=== PATIENT | female | born 1935 | race Hispanic/Latino ===

== ENCOUNTER 2017-04-21 10:55 | Outpatient (CLI) | payer MEDICARE, MEDICAID ==
--- NOTE | 2017-04-21 13:26 | MMO ---
SCREENING MAMMOGRAM: Date: 04/21/17 COMPARISON: 04/19/16 and 04/15/15. HISTORY: Screening mammography, history of left breast cancer treated in 2008 with mastectomy. FINDINGS: This patient's mammogram was interpreted with the assistance of computer-aided detection. Scattered fibroglandular densities are present on the right. Benign microcalcifications are again see n. No dominant mass or architectural distortion. No concerning microcalcifications are noted. IMPRESSION: BIRADS 2: Benign Finding(s) Annual screening mammography recommended. POS: MICHELLE
== END 2017-04-21 10:56 | disposition home or self-care (01) ==
LOC: MAMMO 10:55
PROVIDERS: ATTEND Internal Medicine Hematology & Oncology
DX: Z12.31 Encounter for screening mammogram for malignant neoplasm of breast (principal); C50.912 Malignant neoplasm of unspecified site of left female breast
CPT/HCPCS: 77067; G0202

== ENCOUNTER 2018-05-10 10:57 | Outpatient (CLI) | payer MEDICARE, MEDICAID | END 2018-05-10 10:58 | disposition home or self-care (01) | LOC: BICMAMMO 10:57 | PROVIDERS: ATTEND Internal Medicine Hematology & Oncology | DX: Z12.31 Encounter for screening mammogram for malignant neoplasm of breast (principal); Z85.3 Personal history of malignant neoplasm of breast | CPT/HCPCS: 77063; 77067 ==

== ENCOUNTER 2018-08-20 01:41 | Inpatient (IN) | payer MEDICARE, MEDICAID ==
[2018-08-20 05:40] VITALS: BMI 29.0
[2018-08-20] MEDS ORDERED: Ondansetron ODT 4 MG TAB SL PRN (06:55)
[2018-08-20] MEDS ORDERED: Ondansetron PF 4 MG/2 ML Vial IVP PRN (06:55)
[2018-08-20] MEDS ORDERED: Morphine 4 MG/ML VIAL SLOW IVP PRN (06:55)
[2018-08-20] MEDS: Sodium Chloride 0.9% 1,000 ML IV SCH ×2 (08:58→18:00)
--- NOTE | 2018-08-20 14:07 | HP ---
PRIMARY CARE PHYSICIAN: Dr. Mi. CHIEF COMPLAINT: Abdominal pain. HISTORY OF PRESENT ILLNESS: The patient is an obese 82-year-old female. She is known about a ventral abdominal hernia that she has had for at least 8 or 9 years. She tells me that she has been advised by her physicians not to have this repaired because she is "too old." Yesterday, she developed abdominal pain in the lower abdomen and had vomiting associated with this. She was seen at the [facility] in [place], where laboratory and radiologic evaluation was performed. CT scan of the abdomen revealed the ventral hernia, primarily to the right side of the abdomen with significant loops of bowel herniated into the defect. There was a question about some dilated segments of bowel. It was; however, noted that the bowel that was herniated through this did not appear to be obstructed. The contrast passed through the entire small bowel into the colon. Due to her discomfort and the persistence of this hernia, she was transferred to [facility], where I was consulted in the middle of the night and requested to admit her. The ER physician felt that he could not reduce the hernia. PAST MEDICAL HISTORY: 1. Hypertension. 2. Hyperlipidemia. 3. Gastroesophageal reflux disease. 4. Depression. PAST SURGICAL HISTORY: 1. Left mastectomy. 2. Hysterectomy (vaginal hysterectomy). 3. Cholecystectomy. 4. Cataract surgery. MEDICATIONS: Include; 1. Lisinopril. 2. Amlodipine. 3. Atorvastatin. 4. Omeprazole. 5. Celebrex. 6. Duloxetine. ALLERGIES: SHE IS ALLERGIC TO CIPRO AND CODEINE. PERSONAL AND SOCIAL HISTORY: She is and has 2 children. One of her daughters is present at bedside. She does not smoke. Does not drink alcohol. She lives by herself in [place]. She is ambulatory with a walker. Her primary care physician is Dr. Mi. REVIEW OF SYSTEMS: Otherwise unremarkable. FAMILY HISTORY: Noncontributory. PHYSICAL EXAMINATION: VITAL SIGNS: Temperature 98.1, pulse 71, and blood pressure 163/90. GENERAL: She is a well-developed, well-nourished, moderately obese female, resting in bed, in no acute distress. She is alert and oriented x3. HEAD, EYES, EARS, NOSE, AND THROAT: Unremarkable. NECK: Supple without mass or tenderness. LUNGS: Clear to auscultation throughout. CARDIAC: Regular rate and rhythm without murmur. ABDOMEN: Obese, but soft. Bowel sounds are present and normoactive. There is a palpable mass to the right of midline just inferior to her umbilicus. Attempts to reduce this mass are not completely successful. EXTREMITIES: Unremarkable. LABORATORY DATA: Her CBC when she presented yesterday revealed a white blood cell count of 14.0 with a hemoglobin of 15.5 and platelet count was 221. Chemistry revealed normal electrolytes and normal liver function tests. ASSESSMENT AND PLAN: The patient with a substantial right-sided abdominal hernia. It is difficult to discern, where this came from because I cannot see that she had any real abdominal surgery at this location. She had a vaginal hysterectomy and a cholecystectomy, I guess it is possible this could be from an umbilical incision, but it would be atypical. Nonetheless, I recommend repair with mesh. This would probably be the best approach with the robotic surgery that would allow primary closure of the fascial defect and an onlay mesh on top of that. I discussed all this in detail with the patient as well as potential risks. She understands and agrees to proceed with surgery at this time. Job ID: [id number]
[2018-08-21] MEDS: Sodium Chloride 0.9% 1,000 ML IV SCH ×2 (02:30→11:21)
[2018-08-21 05:47] LABS: #Basophils 0.1 thou/uL (0.0-0.2); #Eosinphils 0.2 thou/uL (0.0-0.7); #Lymphocytes 1.9 thou/uL (1.20-3.40); #Monocytes 0.6 thou/uL (0.11-0.59); #Neutrophils 5.3 thou/uL (1.40-6.50); %Basophils 1.2 % (0.0-1.0); %Eosinophils 2.9 % (0.0-10.0); %Lymphocytes 23.6 % (21.0-51.0); %Monocytes 7.5 % (0.0-10.0); %Neutrophils 64.7 % (42.0-75.0); Hemoglobin 13.1 g/dL (12.0-16.0); Mean Corpuscular HGB CONC 31.6 g/dL (32.0-36.0); Mean Platelet Volume 9.5 fL (7.4-10.4); Platelet Count 171 thou/uL (130-400); RBC Distribution Width 12.8 % (11.5-14.5); Red Blood Cell (RBC) Count 4.35 mill/uL (4.20-5.40); White Blood Cell (WBC) Count 8.2 thou/uL (4.8-10.8)
[2018-08-21 06:02] LABS: Anion Gap 11 mmol/L (10-20); BUN (Urea Nitrogen) 7 mg/dL (9.8-20.1); Calc. Creatinine Clearance 89 mL/min (70-130); Calcium 8.3 mg/dL (7.8-10.44); Carbon Dioxide 24 mmol/L (23-31); Chloride 110 mmol/L (98-107); Estimated GFR-MDRD Greater than 90; Glucose 73 mg/dL (83-110); Potassium 3.6 mmol/L (3.5-5.1); Sodium 141 mmol/L (136-145)
[2018-08-21] MEDS ORDERED: Fentanyl 100 MCG/2 ML VIAL ONE ×3 (08:50→13:56)
[2018-08-21] MEDS ORDERED: PROPOFOL 200 MG/20 ML VIAL ONE (09:07)
[2018-08-21] MEDS ORDERED: Glycopyrrolate 0.2 MG/ML 5 ML SYRINGE ONE (09:07)
[2018-08-21] MEDS ORDERED: PHENYLEPHRINE-NS 100 MCG/ML 10 ML SYRINGE ONE (09:07)
[2018-08-21] MEDS ORDERED: Ketorolac Tromethamine 30 MG/ML VIAL ONE ×2 (09:07→09:41)
[2018-08-21] MEDS ORDERED: Rocuronium Bromide 10 MG/ML (10ML VIAL) ONE (09:07)
[2018-08-21] MEDS ORDERED: ePHEDrine 50 MG/ML VIAL ONE (09:07)
[2018-08-21] MEDS ORDERED: Dexamethasone 20 MG/5 ML VIAL ONE (09:07)
[2018-08-21] MEDS ORDERED: Lidocaine 2% PF 100 mg/5 ml Syringe ONE (09:07)
[2018-08-21] MEDS ORDERED: Ondansetron PF 4 MG/2 ML Vial ONE (09:07)
[2018-08-21] MEDS ORDERED: Bupivacaine/Epinephrine 0.25% 30 ML VIAL ONE (09:07)
[2018-08-21] MEDS ORDERED: Lidocaine 1% PF 5 ML VIAL ONE (09:07)
[2018-08-21] MEDS ORDERED: Dextrose 5% in Water 1,000 ML IV PRN (14:03)
[2018-08-21] MEDS ORDERED: Ondansetron PF 4 MG/2 ML Vial IVP PRN (14:03)
[2018-08-21] MEDS ORDERED: HYDROcodone/Acetaminophen 7.5/325 mg Tablet PO PRN ×2 (14:03)
[2018-08-21] MEDS ORDERED: Morphine 4 MG/ML VIAL SLOW IVP PRN (14:03)
[2018-08-21] MEDS ORDERED: hydrALAZINE 20 MG/ML VIAL SLOW IVP PRN (14:03)
[2018-08-21] MEDS ORDERED: Promethazine HCl 25 MG/ML VIAL IM PRN (14:03)
[2018-08-21] MEDS ORDERED: Dextrose 50% Abboject 50 ML SYRINGE SLOW IVP PRN (14:03)
[2018-08-21] MEDS ORDERED: Promethazine HCl 25 MG/ML VIAL ONE (14:07)
[2018-08-21] MEDS: D5 1/2 NS w/20 mEq KCL 1,000 ML IV SCH (16:33)
[2018-08-21] MEDS: Famotidine 20 MG TAB PO SCH (19:22)
[2018-08-22] MEDS: D5 1/2 NS w/20 mEq KCL 1,000 ML IV SCH ×2 (05:32→20:02)
[2018-08-22 08:34] LABS: #Basophils 0.1 thou/uL (0.0-0.2); #Lymphocytes 1.1 thou/uL (1.20-3.40); #Monocytes 0.9 thou/uL (0.11-0.59); #Neutrophils 14.7 thou/uL (1.40-6.50); %Basophils 0.3 % (0.0-1.0); %Eosinophils 0.1 % (0.0-10.0); %Lymphocytes 6.5 % (21.0-51.0); %Monocytes 5.5 % (0.0-10.0); %Neutrophils 87.6 % (42.0-75.0); Hemoglobin 11.8 g/dL (12.0-16.0); Mean Corpuscular HGB CONC 31.1 g/dL (32.0-36.0); Mean Corpuscular Hemoglobin 30.3 pg (27.0-31.0); Mean Corpuscular Volume 97.2 fL (78.0-98.0); Mean Platelet Volume 9.3 fL (7.4-10.4); Platelet Count 187 thou/uL (130-400); RBC Distribution Width 12.9 % (11.5-14.5); White Blood Cell (WBC) Count 16.8 thou/uL (4.8-10.8)
[2018-08-22 10:20] LABS: Chloride 103 mmol/L (98-107); Potassium 4.1 mmol/L (3.5-5.1); Sodium 137 mmol/L (136-145)
[2018-08-22 10:21] LABS: Glucose 140 mg/dL (83-110)
[2018-08-22 10:23] LABS: Anion Gap 15 mmol/L (10-20); Carbon Dioxide 23 mmol/L (23-31)
[2018-08-22] MEDS: Famotidine 20 MG TAB PO SCH ×3 (10:24→20:02)
[2018-08-22 10:25] LABS: BUN (Urea Nitrogen) 12 mg/dL (9.8-20.1); Calc. Creatinine Clearance 71 mL/min (70-130); Estimated GFR-MDRD 75
[2018-08-22 10:39] LABS: Calcium 9.8 mg/dL (7.8-10.44)
[2018-08-22] MEDS: Enoxaparin Sodium 40 MG/0.4 ML SYRINGE SC SCH (11:44)
--- NOTE | 2018-08-22 15:17 | PRG ---
DATE OF SERVICE: 08/22/2018 SUBJECTIVE: Ms. Alvarez is postoperative day #1 from robotic repair of multiple ventral abdominal hernias and robotic repair of an umbilical hernia. She had some episodes of emesis immediately after the surgery, for which a nasogastric tube was placed. This is still present this morning. OBJECTIVE: VITAL SIGNS: She is afebrile, pulse is 73, blood pressure 137/67. GENERAL: She is alert and oriented, in minimal discomfort. She has ambulated. HEAD, EYES, EARS, NOSE, AND THROAT: Unremarkable. NECK: Supple. LUNGS: Clear to auscultation. ABDOMEN: Has intact bowel sounds. Her umbilicus is nicely inverted and her robotic incision sites are healing nicely. LABORATORY DATA: Her white blood cell count is elevated at 16.8, hemoglobin is 11.8. Basic metabolic panel is entirely normal. ASSESSMENT: The patient seems to be doing well. Nasogastric tube will be removed. She will be started on clear liquid diet today. I have encouraged her to get out of bed frequently and sit up in the chair and ambulate. Hopefully, she will have substantial ileus after resolution of her incarcerated hernia. Job ID: [id number]
[2018-08-22] MEDS: Acetaminophen 325 MG TAB PO PRN (21:15)
[2018-08-23] MEDS: Acetaminophen 325 MG TAB PO PRN ×2 (08:16→19:34)
[2018-08-23] MEDS: CeleCOXIB 100 MG CAP PO SCH (08:17)
[2018-08-23] MEDS: Atorvastatin Calcium 20 MG TAB PO SCH (08:17)
[2018-08-23] MEDS: DULoxetine 30 MG CAP PO SCH (08:17)
[2018-08-23] MEDS: Amlodipine 5 MG TAB PO SCH (08:17)
[2018-08-23] MEDS: Lisinopril 10 MG TAB PO SCH (08:18)
[2018-08-23] MEDS: Famotidine 20 MG TAB PO SCH ×2 (08:18→19:34)
[2018-08-23] MEDS: Enoxaparin Sodium 40 MG/0.4 ML SYRINGE SC SCH (08:27)
[2018-08-23] MEDS ORDERED: Magnesium Citrate 300 ML BOT PO SCH (09:00)
[2018-08-23] MEDS ORDERED: Amlodipine 5 MG TAB PO SCH (09:00)
[2018-08-23] MEDS ORDERED: DULoxetine 30 MG CAP PO SCH (09:00)
[2018-08-23] MEDS ORDERED: Non-Formulary Item 1 EACH (Celecoxib [Celebrex] 200 MG) PO SCH (09:00)
[2018-08-24 05:49] LABS: #Basophils 0.1 thou/uL (0.0-0.2); #Eosinphils 0.3 thou/uL (0.0-0.7); #Lymphocytes 1.5 thou/uL (1.20-3.40); #Monocytes 0.7 thou/uL (0.11-0.59); #Neutrophils 6.6 thou/uL (1.40-6.50); %Eosinophils 3.3 % (0.0-10.0); %Lymphocytes 16.1 % (21.0-51.0); %Monocytes 7.4 % (0.0-10.0); %Neutrophils 72.2 % (42.0-75.0); Hemoglobin 12.2 g/dL (12.0-16.0); Mean Corpuscular HGB CONC 31.6 g/dL (32.0-36.0); Mean Corpuscular Hemoglobin 30.2 pg (27.0-31.0); Mean Corpuscular Volume 95.8 fL (78.0-98.0); Mean Platelet Volume 9.3 fL (7.4-10.4); Platelet Count 166 thou/uL (130-400); RBC Distribution Width 12.9 % (11.5-14.5); Red Blood Cell (RBC) Count 4.02 mill/uL (4.20-5.40); White Blood Cell (WBC) Count 9.2 thou/uL (4.8-10.8)
[2018-08-24 07:39] VITALS: TEMP 98.3
[2018-08-24] MEDS: CeleCOXIB 100 MG CAP PO SCH (08:03)
[2018-08-24] MEDS: Atorvastatin Calcium 20 MG TAB PO SCH (08:03)
[2018-08-24] MEDS: Famotidine 20 MG TAB PO SCH (08:03)
[2018-08-24] MEDS: DULoxetine 30 MG CAP PO SCH (08:03)
[2018-08-24] MEDS: Acetaminophen 325 MG TAB PO PRN (08:03)
[2018-08-24] MEDS: Lisinopril 10 MG TAB PO SCH (08:04)
[2018-08-24] MEDS: Amlodipine 5 MG TAB PO SCH (08:04)
[2018-08-24] MEDS: Enoxaparin Sodium 40 MG/0.4 ML SYRINGE SC SCH (09:11)
[2018-08-24 11:11] VITALS: BP 124/76
--- NOTE | 2018-08-25 14:41 | OP ---
DATE OF PROCEDURE: 08/21/2018 PREOPERATIVE DIAGNOSES: Incarcerated ventral abdominal hernia with partial small bowel obstruction, umbilical hernia. POSTOPERATIVE DIAGNOSES: Incarcerated ventral abdominal hernia with partial small bowel obstruction, umbilical hernia. Finding of 5 separate ventral hernias inferior to her umbilicus as well as the umbilical hernia. OPERATIONS PERFORMED: Robotic repair of multiple ventral abdominal hernias with mesh, repair of umbilical hernia with mesh. ANESTHESIA: General endotracheal. INDICATIONS: The patient is an 82-year-old moderately obese female. She was recognized to have a ventral abdominal hernia inferior and a little bit to the right of her umbilicus that she tells me has been present for several years. For reasons that are not clear, she was recommended against repair of this. She presented to the emergency room at this time complaining of abdominal pain and CT scan shows a significant volume of small bowel present up within her hernia. She did not appear to have definitely obstructive findings at this time. Nonetheless, I recommend repair of the hernias as I am unable to reduce the bowel contents. I recommend doing this robotically. DESCRIPTION OF OPERATION: Informed consent was obtained. The patient was taken to the operating room, where general endotracheal anesthesia was obtained with the patient in supine position. Abdomen was prepped with ChloraPrep and draped in sterile fashion. Local anesthetic was infiltrated and an 11 mm epigastric incision was created through which a Veress needle was passed in the peritoneal cavity and pneumoperitoneum established using carbon dioxide up to a pressure of 15 mmHg. An 11 mm trocar port sites at the same incision, laparoscopic camera was passed this port. Under direct vision, 2 additional 8 mm robotic ports were placed laterally at the same level on either side of midline. The robot was docked to the ports and to the camera and the operation was continued from the robotic console. Attention was turned to the hernias. The umbilical hernia was the more cephalad and there was no incarcerated material within this, but there was a broad-based defect. When measured, this was about 2.5 x 3 cm. Inferior to this, there was a significant volume of tissue adherent to the abdominal wall. As I began to mobilize omental tissue, it became apparent that there were multiple hernias at this level. Each of which was entirely and had a separate hernia sacs emanated from these. I removed a large volume of omentum from within these. No adhesions were taken down using combination of sharp dissection and electrocautery. With compression externally, I was able to reduce all of the bowel contents out of the dominant hernia and lysed the adhesions between the loops of small bowel and the hernia sac. Again, great care was taken in doing this to maintain meticulous hemostasis as well as to avoid any bowel injuries. All reduced contents were inspected, there was no evidence of any injury or bleeding. Attention was then turned back to the hernias. I measured the complex of ventral hernias other than the umbilicus and these measured about 7 cm in width by about 4 to 5 cm longitudinally. Because of the way that these were ranged, these appeared to be amenable to closure with a single running suture in a transverse fashion. I used the #1 nonabsorbable STRATAFIX suture and closed these multiple hernias in a transverse fashion with robotic intracorporeal suturing. The pressure within the abdomen was dropped to 9 mmHg during the closure. There was excellent approximation of tissue. The length of the incision was still about 7.5 cm in length, but the wound itself was not less than 1 cm. Attention was then turned to the umbilical hernia, which was closed with a similar suture in a similar fashion. When I then measured the 2 areas of the hernia closures, the dimensions then measured 7.5 cm in maximum width x about 3 to 4 cm in total longitudinal length. I felt that coverage of both defects with a single 10 x 15 cm Ventralex mesh patch was appropriate. The patch was obtained and placed within the abdominal cavity. I used a stay suture to center this to obtain maximum coverage over both defects. The outer circumference of the suture was then closed using a running suture of 2-0 V-Loc using absorbable material. Two of the sutures were required to complete the circumference. When this was completed, I also placed 2 interrupted sutures of 3-0 Vicryl within the center of the patch to get better approximation of the mesh material against the fascia. Not mentioned earlier was that in preparation for placement of the mesh, all preperitoneal fat was carefully dissected away from the fascia circumferentially for an area greater than the mesh patch. Hemostasis was maintained during this again using electrocautery. After the mesh was well seated, all needles were removed. The fascial defect at the 11 mm port site was closed with 0 Vicryl suture using a GraNee needle. All ports and instruments were removed under direct vision. Pneumoperitoneum was carefully evacuated. A 0.25% Marcaine with epinephrine was infiltrated at each port site. Skin edges approximated with 4-0 Monocryl subcuticular suture. Dermabond was placed externally. An abdominal binder was then placed to secure and provide external compression. There were no complications. Blood loss is negligible. The patient tolerated the procedure well and was taken to recovery room in stable condition. Job ID: [id number]
== END 2018-08-24 13:30 | disposition home or self-care (01) | DRG 355 ==
LOC: ERS 01:41 → SURG A 03:00 → OBSVTOIN 03:00 → SURG A 05:07
PROVIDERS: ADMIT Specialist; ATTEND Specialist
PROC: 0WUF4JZ Supplement Abdominal Wall with Synthetic Substitute, Percutaneous Endoscopic Approach (ICD-10-PCS; principal; 2018-08-21)
PROC: 8E0W4CZ Robotic Assisted Procedure of Trunk Region, Percutaneous Endoscopic Approach (ICD-10-PCS; 2018-08-21)
DX: K43.9 Ventral hernia without obstruction or gangrene (principal); K42.9 Umbilical hernia without obstruction or gangrene; I10 Essential (primary) hypertension; E78.5 Hyperlipidemia, unspecified; K21.9 Gastro-esophageal reflux disease without esophagitis; F32.9 Major depressive disorder, single episode, unspecified; Z90.710 Acquired absence of both cervix and uterus; Z90.12 Acquired absence of left breast and nipple; Z90.49 Acquired absence of other specified parts of digestive tract; Z98.49 Cataract extraction status, unspecified eye; Z79.899 Other long term (current) drug therapy; Z79.1 Long term (current) use of non-steroidal anti-inflammatories (NSAID); Z88.5 Allergy status to narcotic agent; Z88.1 Allergy status to other antibiotic agents; F41.9 Anxiety disorder, unspecified; Z85.3 Personal history of malignant neoplasm of breast; E66.9 Obesity, unspecified; Z68.29 Body mass index [BMI] 29.0-29.9, adult
CPT/HCPCS: 36415; 80048; 85025; 99285; J0131; J1100; J1650; J1885; J2001; J2405; J2550; J2704; J3010; J3490

== ENCOUNTER 2018-11-20 09:00 | Emergency (ER) | payer MEDICARE, MEDICAID ==
[2018-11-20] MEDS ORDERED: HYDROcodone/Acetaminophen 5/325 mg Tablet ONE (10:36)
[2018-11-20] MEDS ORDERED: Dexamethasone 10 MG/ML VIAL ONE (10:36)
[2018-11-20 11:55] LABS: Bilirubin Negative (Negative); Blood, Urine Negative (Negative); Clarity CLOUDY (Clear); Glucose, Urine (Dipstick) Negative (Negative); Leukocyte Negative (Negative); Nitrite Negative (Negative); Protein, Urine (Dipstick) Negative (Neg-Trace); Specific Gravity, Urine 1.013 (1.002-1.036); Urobilinogen 0.2 mg/dL (0.2-1.0); pH, Urine 7.5 (5.0-9.0)
--- NOTE | 2018-11-20 12:39 | CT ---
CT LUMBAR SPINE: INDICATIONS: Back pain x2 weeks. COMPARISON: CT lumbar spine from lumbar spine 10/16/2016. TECHNIQUE: Multiple axial tomograms obtained with multiplanar reconstruction. FINDINGS: The lungs show osteopenia. Moderate degenerative changes of the lumbar spine are again noted. There is a new compression fracture involving the L5 vertebra when compared to the prior study. Ther e is superior endplate compression. There is buckling of the anterior and posterior cortex. Slight retropulsion of the posterior-superior cortex of L5. The L4-L5 and L5-S1 disk spaces are preserved. New vacuum phenomena seen at L4-L5, when compared to prior exam. The other lumbar vertebrae maintain height and appear stable. Mild superior endplate compression at L1 with superior endplate deformity is stable from prior exam. T12-L1: Mild disk bulge without central canal stenosis. L1-L2: Diffuse disk bulge. Mild central canal stenosis. L2-L3: Broad-based disk bulge. Facet and ligamentous hypertrophy. Mild to moderate central canal s tenosis. Right foraminal stenosis due to asymmetric disk bulge and facet hypertrophy. L3-L4: Degenerative disk change with vacuum phenomena. Diffuse disk bulge. Facet hypertrophy. Mil d to moderate central canal stenosis. Right foraminal stenosis. L4-L5: Broad-based disk bulge. Facet hypertrophy. Moderate central canal stenosis. Bilateral fora leela stenosis. L5-S1: There is mild anterolisthesis, which is stable from the prior exam. Diffuse disk bulge. Mil d central canal stenosis. Mild left foraminal stenosis. IMPRESSION: 1. New compression deformity involving the L5 vertebra, when compared to prior examination. Superio r endplate compression with buckling of the anterior and posterior cortex and slight retropulsion is now noted. Loss of height estimated at 20%. 2. Degenerative changes of the lumbar spine, as described above. Findings otherwise appear stable. POS: OFF
== END 2018-11-20 14:00 | disposition home or self-care (01) ==
LOC: ERS 09:00
DX: S32.059A Unspecified fracture of fifth lumbar vertebra, initial encounter for closed fracture (principal); E78.5 Hyperlipidemia, unspecified; F41.9 Anxiety disorder, unspecified; Z79.899 Other long term (current) drug therapy; X58.XXXA Exposure to other specified factors, initial encounter
CPT/HCPCS: 72131; 81003; 87086; J1100

== ENCOUNTER 2018-12-04 09:17 | Outpatient (CLI) | payer MEDICARE, MEDICAID ==
--- NOTE | 2018-12-04 09:40 | RAD ---
EXAM: Lumbar spine 2 views: HISTORY: Low back pain and pain down left leg COMPARISON: 11/20/2018 CT. FINDINGS: Bony demineralization. Minimal vertical height loss of L5 with indistinction of the superior endplate region concerning for fracture. Minimal anterolisthesis of L5 on S1.. There are disc osteophytosis and facet arthrosis changes. Moderate levoscoliosis. No evidence for a bone lesion. IMPRESSION: Spondylosis. Bony demineralization. Mildly compressed L5 vertebral body fracture with anterolisthesis of L5 on S1 showing little change f rom prior CT.
== END 2018-12-04 09:18 | disposition home or self-care (01) ==
LOC: TBSIIMAG 09:17
PROVIDERS: ATTEND Physician Assistant
DX: S32.059A Unspecified fracture of fifth lumbar vertebra, initial encounter for closed fracture (principal); M47.816 Spondylosis without myelopathy or radiculopathy, lumbar region; M43.17 Spondylolisthesis, lumbosacral region
CPT/HCPCS: 72100

== ENCOUNTER 2019-05-15 10:13 | Outpatient (CLI) | payer MEDICARE, MEDICAID ==
--- NOTE | 2019-05-15 11:21 | MMO ---
Bilateral MAMMO Bilat Screen [facility]. CLINICAL HISTORY: Patient is 83 years old and is seen for screening. The patient has no family history of breast cancer. The patient has a history of left Mastectomy in 2008. VIEWS: The views performed were: right craniocaudal with tomosynthesis and right mediolateral oblique with tomosynthesis. FILMS COMPARED: The present examination has been compared to prior imaging studies performed at [facility] on 04/15/2015, 04/19/2016, 04/21/2017 and 05/10/2018. This study has been interpreted with the assistance of computer-aided detection. MAMMOGRAM FINDINGS: There are scattered fibroglandular densities. There are stable benign appearing calcifications seen in the right breast. There are also vascular calcifications. There are no suspicious masses, suspicious calcifications, or new areas of architectural distortion. IMPRESSION: THERE IS NO MAMMOGRAPHIC EVIDENCE OF MALIGNANCY. A ROUTINE FOLLOW-UP MAMMOGRAM IN 1 YEAR IS RECOMMENDED. THE RESULTS OF THIS EXAM WERE SENT TO THE PATIENT. ACR BI-RADS Category 2 - Benign finding MAMMOGRAPHY NOTE: 1. A negative mammogram report should not delay a biopsy if a dominant of clinically suspicious mass is present. 2. Approximately 10% to 15% of breast cancers are not detected by mammography. 3. Adenosis and dense breasts may obscure an underlying neoplasm. Reported by: SYDNIE ARELLANO MD Electonically Signed: [id number]
== END 2019-05-15 10:14 | disposition home or self-care (01) ==
LOC: BICMAMMO 10:13
PROVIDERS: ATTEND Internal Medicine Hematology & Oncology
DX: Z12.31 Encounter for screening mammogram for malignant neoplasm of breast (principal); C50.919 Malignant neoplasm of unspecified site of unspecified female breast
CPT/HCPCS: 77063; 77067

== ENCOUNTER 2020-05-20 11:14 | Outpatient (CLI) | payer MEDICARE, MEDICAID ==
--- NOTE | 2020-05-20 15:26 | MMO ---
Bilateral MAMMO Bilat Screen [facility]. CLINICAL HISTORY: Patient is 84 years old and is seen for screening. The patient has no family history of breast cancer. The patient has a history of left Mastectomy in 2008. VIEWS: The views performed were: right craniocaudal with tomosynthesis and right mediolateral oblique with tomosynthesis. FILMS COMPARED: The present examination has been compared to prior imaging studies performed at [facility] on 04/19/2016, 04/21/2017, 05/10/2018 and 05/15/2019. This study has been interpreted with the assistance of computer-aided detection. MAMMOGRAM FINDINGS: There are scattered fibroglandular densities. There are benign appearing calcifications in the right breast. There are no suspicious masses, suspicious calcifications, or new areas of architectural distortion. IMPRESSION: THERE IS NO MAMMOGRAPHIC EVIDENCE OF MALIGNANCY. A ROUTINE FOLLOW-UP MAMMOGRAM IN 1 YEAR IS RECOMMENDED. THE RESULTS OF THIS EXAM WERE SENT TO THE PATIENT. ACR BI-RADS Category 2 - Benign finding MAMMOGRAPHY NOTE: 1. A negative mammogram report should not delay a biopsy if a dominant of clinically suspicious mass is present. 2. Approximately 10% to 15% of breast cancers are not detected by mammography. 3. Adenosis and dense breasts may obscure an underlying neoplasm. Reported by: BUSHRA GUSTAFSON MD Electonically Signed: [id number]
== END 2020-05-20 11:15 | disposition home or self-care (01) ==
LOC: BICMAMMO 11:14
PROVIDERS: ATTEND Internal Medicine Hematology & Oncology
DX: Z12.31 Encounter for screening mammogram for malignant neoplasm of breast (principal); Z90.12 Acquired absence of left breast and nipple
CPT/HCPCS: 77063; 77067